=== PATIENT | female | born 1965 | race Two or more races ===

== ENCOUNTER 2025-04-05 17:05 | Emergency (ER) | payer OTHER, SELFPAY ==
[2025-04-05 17:06] VITALS: BMI 22.1
[2025-04-05 17:23] VITALS: BP 121/79; PULSE 71; RESP 19; TEMP 36.7; O2SAT 97
--- NOTE | 2025-04-05 17:30 | XR_ITS ---
Examination: Shoulder,right, 3 views Technique: Shoulder AP internal rotation, AP external rotation, Y view shoulder, 3 views Exam date and time :April 05, 2025 1741 hours INDICATIONS: Right shoulder pain beginning 10 days ago post injury FINDINGS: No fracture or dislocation. No acromioclavicular joint separation. Moderate narrowing glenohumeral joint IMPRESSION: No fracture Moderate narrowing glenohumeral joint
--- NOTE | 2025-04-05 17:31 | PD.EDRME ---
Rapid Medical Screening Exam RME Arrival date/time: 04/05/25 17:05 60-year-old female with no known medical history presents to the emergency room with a chief complaint of pain and tenderness to her right shoulder x 1 week I have greeted and performed a focused initial assessment of this patient. A comprehensive ED assessment and evaluation of the patient, analysis of all test results, and completion of the medical decision making process will be conducted by additional ED providers. Chief Complaint: Extremity Injury, Upper Vital signs: Vital Signs Temperature 98.1 F 04/05/25 17:23 Pulse Rate 71 04/05/25 17:23 Respiratory Rate 19 04/05/25 17:23 Blood Pressure 121/79 04/05/25 17:23 Pulse Oximetry (%) 97 04/05/25 17:23 Oxygen Delivery Method Room Air 04/05/25 17:23 Vital signs reviewed by provider: Yes
--- NOTE | 2025-04-05 21:13 | PD.EDUPEX ---
Upper Extremity Injury RME/HPI General Chief Complaint: Extremity Injury, Upper Stated Complaint: MUSCLE PULL ON R) SHOULDER/NECK Time Seen by Provider: 04/05/25 18:12 Arrival date/time: 04/05/25 17:05 60-year-old female presents to the ED with complaint of right shoulder pain secondary to moving heavy things during the moving process. She points to the trapezius muscle of the right shoulder with extension of pain into the right neck and mildly down the thoracic spine. She denies any numbness or tingling distally. She has decreased range of motion secondary to pain. RME / HPI RME / HPI narrative: 04/05/25 17:05 60-year-old female with no known medical history presents to the emergency room with a chief complaint of pain and tenderness to her right shoulder x 1 week I have greeted and performed a focused initial assessment of this patient. A comprehensive ED assessment and evaluation of the patient, analysis of all test results, and completion of the medical decision making process will be conducted by additional ED providers. Related Data Home Medications ?Medication ?Instructions ?Recorded ?Confirmed loratadine 10 mg tablet 1 tab PO DAILY 02/20/22 02/20/22 Previous Rx's ?Medication ?Instructions ?Recorded lidocaine 5 % topical patch 1 patch topical Q24H PRN Muscle 04/05/25 (Lidoderm) pain/spasm #15 ea Allergies Allergy/AdvReac Type Severity Reaction Status Date / Time codeine Allergy Severe SORES IN Verified 04/05/25 17:09 MOUTH Review of Systems Review of Systems Systems Reviewed: All systems reviewed, normal except as documented Past Medical History Past Medical History NEUROLOGIC: Negative Seizures CARDIAC: Positive Hypercholesterolemia; Negative Cardiac Disorders or Congestive Heart Failure RESPIRATORY: Negative Chronic Obstructive Pulmonary Disease (COPD) or Asthma GENITOURINARY: Negative Renal Disease ENDOCRINE: Negative Diabetes Mellitus Type 1 or Diabetes Mellitus Type 2 HEMATOLOGIC: Negative Sickle Cell Disease OTHER HISTORY: Negative Blood Transfusions, Blood Transfusion Reaction or Anesthesia Reactions Surgical History SURGICAL: Positive Hysterectomy Social History SMOKING STATUS: Never smoker ED Exam Narrative Physical exam: A&O, afebrile and non-toxic appearing 60-year-old female, mild acute pain distress. Lung are clear, RRR. Right trapezius muscle tenderness extending to the right occiput, right distal shoulder, and down to the upper thoracic paraspinal muscle. Decreased range of motion of the right shoulder secondary to pain. No A/C joint tenderness. Positive GH joint tenderness. Decreased internal rotation, external rotation, extension, abduction/adduction of the right shoulder secondary to pain. Moves all other extremities well. Course Course Course Narrative: XR shoulder reveals no acute fracture or dislocation. Mild narrowing of the GH joint. No AC joint separation noted. Patient was placed in a right arm sling for comfort. She is unable to take NSAIDs due to a chronic history of gastritis. Quality Measures none Orders Category Date Time Status XR shoulder RT min 2V Stat Exams 04/05/25 17:30 Completed Vital Signs Vital signs: Vital Signs Temperature 98.1 F 04/05/25 17:23 Pulse Rate 71 04/05/25 17:23 Respiratory Rate 19 04/05/25 17:23 Blood Pressure 121/79 04/05/25 17:23 Pulse Oximetry (%) 97 04/05/25 17:23 Oxygen Delivery Method Room Air 04/05/25 17:23 Extremity Injury MDM Narrative MDM Narrative:: Symptoms, exam and diagnostic studies are consistent with: Right shoulder, myofascial pain syndrome. Patient was discharged home in stable condition with prescriptions for lidocaine patches. She was advised to also use OTC pain reliever cream. Patient/family advised to follow-up with their PCP in 24-48 hours. Encouraged to return to the ED for any new or worsening symptoms. Patient data External records reviewed:: None Clinical information provided by:: patient and family Social determinants that could affect healthcare access:: none Patient has the following chronic illnesses:: Gastritis How is presenting disease/condition affected by chronic disease/condition?: uneffected by Evaluation data The following diagnostics were reviewed and interpreted by me:: radiology exam(s) Lab and/or radiology exams considered but not ordered:: N/A Interpretation Summary: As noted above Medications / Prescriptions Medications or Prescriptions considered but not ordered:: N/A Medication administrations:: N/A Consultations Consultation(s) initiated? (list below): No Diagnosis Upper Extremity Injury Differential Diagnosis: dislocation of shoulder, fracture of humerus, fracture of clavicle and other (Myofascial pain syndrome.) Most likely diagnosis given after review of the tests above:: Myofascial pain syndrome of the right true PCS muscle. Admission Indicated Admission indicated?: not indicated Explain why admission is indicated or not indicated:: Patient is stable for discharge Admission Request Was there a request for admission?: No Admission Attestation Admission request attestation: N/A Disposition Plan Disposition Plan: Discharge Discharge Attestation Discharge Attestation: The patient and all family members were given an opportunity to ask questions and understood the discharge instructions. Discharge instructions specifically effects, indications for sooner follow up or return to the emergency department, and the expected course of current diagnosis. Patient condition: Stable Discharge Plan Plan Patient Disposition: HOME (Self Care) Discharge Disposition comment: Stable and improved Prescriptions/Referrals Prescriptions/Med Rec: New lidocaine [Lidoderm] 5 % adhesive patch,medicated 1 patch topical Q24H PRN (Reason: Muscle pain/spasm) Qty: 15 0RF Rx Instructions: leave on most painful area for up to 12 hrs, then remove for 12 hours. No Action loratadine 10 mg tablet 1 tab PO DAILY Referrals: Roel Jacques MD [Primary Care Provider] - In 1 week Problem List Clinical Impression: Myofascial pain syndrome Patient/Caregiver Discharge Instructions Education Materials: Glenohumeral Osteoarthritis, ED Myofascial Pain Syndrome Additional Instructions: Apply lidocaine patches as prescribed. You can also use heat packs. Please use the sling to help relax and rest the shoulder. Follow-up with your primary care physician in 24 to 48 hours. Return to the ED for any new or worsening symptoms. Print Language: Indonesian Stand Alone Forms: [employer] Award Info., Patient Portal Info Letter MARCIE/ANGUS Supervising Physician MARCIE/ANGUS Supervising Physician: Dr Pisano
== END 2025-04-05 22:05 | disposition home or self-care (01) ==
PROVIDERS: Emergency Provider Emergency Medicine; PCP Family Medicine
DX: M25.811 Other specified joint disorders, right shoulder (principal)
CPT/HCPCS: 73030; 99283